=== PATIENT | male | born 1945 | race Caucasian/White ===

== ENCOUNTER 2018-08-27 11:11 | Inpatient (IN) | payer MEDICARE, OTHER ==
[~2018-08-27] VITALS: Ht 162.6 cm; Wt 60.8 kg
[2018-08-27 12:12] LABS: BASOPHILS % (AUTO) 0.5 % (0-1); EOSINOPHILS # (AUTO) 0.1 X10'3 (0-0.9); EOSINOPHILS % (AUTO) 1.8 % (0-6); HEMATOCRIT 38.6 % (42.0-52.0); LYMPHOCYTES # (AUTO) 0.9 X10'3 (1.1-4.8); LYMPHOCYTES % (AUTO) 15.5 % (21-51); MEAN CORPUSCULAR HEMOGLOBIN 33.5 PG (27.0-31.0); MEAN CORPUSCULAR HGB CONC 33.7 g/dL (33.0-36.5); MEAN CORPUSCULAR VOLUME 99.4 FL (78-98); MEAN PLATELET VOLUME 7.8 FL (7.4-10.4); MONOCYTES # (AUTO) 0.6 X10'3 (0-0.9); MONOCYTES % (AUTO) 10.5 % (2-12); NEUTROPHILS # (AUTO) 4.3 X10'3 (1.8-7.7); NEUTROPHILS % (AUTO) 71.7 % (42-75); PLATELET COUNT 223 X10'3 (140-440); RED BLOOD COUNT 3.88 X10'6 (4.70-6.10); RED CELL DISTRIBUTION WIDTH 12.3 % (11.5-14.5)
[2018-08-27 12:24] LABS: ALANINE AMINOTRANSFERASE 19 U/L (12-78); ALBUMIN 3.7 G/DL (3.4-5.0); ALBUMIN/GLOBULIN RATIO 1.1 (1.1-1.5); ALKALINE PHOSPHATASE 58 IU/L (46-116); ANION GAP 4 (8-16); ASPARTATE AMINO TRANSFERASE 16 U/L (10-37); BILIRUBIN,TOTAL 0.7 MG/DL (0.1-1.0); BLOOD UREA NITROGEN 14 MG/DL (7-18); CALCIUM 9.4 MG/DL (8.5-10.1); CHLORIDE 99 MMOL/L (99-107); GLUCOSE 101 MG/DL (70-104); POTASSIUM 4.5 MMOL/L (3.5-5.1); SODIUM 129 MMOL/L (135-145); TOTAL CARBON DIOXIDE 25.9 MMOL/L (24-32); TOTAL PROTEIN 7.1 G/DL (6.4-8.2); eGFR > 90 ML/MIN
[2018-08-27 12:25] LABS: PARTIAL THROMBOPLASTIN TIME 31 SECONDS (22-32); PROTHROMBIN TIME 10.6 SECONDS (9.0-12.0)
[2018-08-27] MEDS ORDERED: aspirin 81mg tab.chew PO ONE (13:50)
[2018-08-27] MEDS ORDERED: mag hydrox/Alum hydrox/simeth 30ml oral suspension PO PRN (14:00)
[2018-08-27] MEDS ORDERED: regadenoson 0.4mg/5ml syringe IV PRN (14:00)
[2018-08-27] MEDS ORDERED: aminophylline 250mg/10ml inj. IV PRN (14:00)
[2018-08-27] MEDS ORDERED: ondansetron/PF 4mg/2ml inj IV PRN (14:00)
[2018-08-27] MEDS ORDERED: metoprolol tartrate 1mg/ml inj IV PRN (14:00)
[2018-08-27] MEDS ORDERED: magnesium hydroxide 30ml (MOM) UD suspension PO PRN (14:00)
[2018-08-27] MEDS ORDERED: acetaminophen 325mg tablet PO PRN (14:00)
[2018-08-27] MEDS ORDERED: nitroGLYCERIN 0.4mg SUBLingual tab SL PRN (14:00)
[2018-08-27] MEDS ORDERED: FISH12002 PO (14:15)
[2018-08-27] MEDS ORDERED: IRBE150T27 PO (14:15)
[2018-08-27] MEDS ORDERED: BLACK CURRANT OIL PO (14:15)
[2018-08-27] MEDS ORDERED: CYAN-19 PO (14:15)
[2018-08-27] MEDS ORDERED: PRAV20TA4 PO (14:15)
[2018-08-27] MEDS ORDERED: [UNRECOGNIZED DRUG - OTHER] PO (14:15)
[2018-08-27] MEDS: normal saline 1000ml 1,000 ML IV SCH ×2 (16:07→21:56)
--- NOTE | 2018-08-27 19:57 | NUR ---
PATIENT WANTS TO WALK TO BATHROOOM, ACCOMPANIED TO BR
[2018-08-27 20:30] VITALS: BP 165/96
--- NOTE | 2018-08-27 20:30 | NUR ---
Patient arrived from the ER via W/C and is ambulating in his room on his own, the aide is doing vitals and I am going to get his heart monitor at this time.
[2018-08-28] VITALS (11 sets, daily range): BP systolic 107–168; BP diastolic 46–79
[2018-08-28 06:07] LABS: BASOPHILS % (AUTO) 0.7 % (0-1); EOSINOPHILS # (AUTO) 0.2 X10'3 (0-0.9); EOSINOPHILS % (AUTO) 3.8 % (0-6); HEMATOCRIT 37.3 % (42.0-52.0); HEMOGLOBIN 12.7 g/dl (14.0-17.9); LYMPHOCYTES % (AUTO) 22.1 % (21-51); MEAN CORPUSCULAR HEMOGLOBIN 33.7 PG (27.0-31.0); MEAN CORPUSCULAR HGB CONC 34.1 g/dL (33.0-36.5); MEAN CORPUSCULAR VOLUME 98.7 FL (78-98); MEAN PLATELET VOLUME 8.1 FL (7.4-10.4); MONOCYTES # (AUTO) 0.5 X10'3 (0-0.9); NEUTROPHILS # (AUTO) 2.9 X10'3 (1.8-7.7); NEUTROPHILS % (AUTO) 62.4 % (42-75); PLATELET COUNT 199 X10'3 (140-440); RED BLOOD COUNT 3.78 X10'6 (4.70-6.10); RED CELL DISTRIBUTION WIDTH 12.4 % (11.5-14.5); WHITE BLOOD COUNT 4.6 X10'3 (4.5-11.0)
--- NOTE | 2018-08-28 06:17 | NUR ---
Problems reprioritized. Patient report given, questions answered & plan of care reviewed with Katherine ZAMORA.
[2018-08-28 06:30] LABS: ALANINE AMINOTRANSFERASE 18 U/L (12-78); ALBUMIN 3.2 G/DL (3.4-5.0); ALKALINE PHOSPHATASE 50 IU/L (46-116); ANION GAP 7 (8-16); ASPARTATE AMINO TRANSFERASE 15 U/L (10-37); BILIRUBIN,TOTAL 0.4 MG/DL (0.1-1.0); BLOOD UREA NITROGEN 13 MG/DL (7-18); BUN/CREATININE RATIO 20.3 (5.4-32.0); CALCIUM 8.6 MG/DL (8.5-10.1); CHLORIDE 102 MMOL/L (99-107); CREATININE 0.64 MG/DL (0.60-1.10); GLUCOSE 74 MG/DL (70-104); POTASSIUM 3.9 MMOL/L (3.5-5.1); SODIUM 134 MMOL/L (135-145); TOTAL CARBON DIOXIDE 25.3 MMOL/L (24-32); TOTAL PROTEIN 6.3 G/DL (6.4-8.2); eGFR > 90 ML/MIN
[2018-08-28] MEDS ORDERED: regadenoson 0.4mg/5ml syringe IV ONE (09:21)
[2018-08-28] MEDS ORDERED: aminophylline inj. 10 ML IV ONE (09:21)
[2018-08-28] MEDS ORDERED: atorvastatin 10mg tablet PO SCH (21:00)
== END 2018-08-28 12:27 | disposition home or self-care (01) | DRG 313 ==
LOC: ER 11:11 → ORTHO 4S 20:15 → CMPBEDREQ 20:52
PROVIDERS: ADMIT Family Medicine; ATTEND Family Medicine
PROC: 4A02XM4 Measurement of Cardiac Total Activity, External Approach (ICD-10-PCS; principal; 2018-08-28)
PROC: 3E033HZ Introduction of Radioactive Substance into Peripheral Vein, Percutaneous Approach (ICD-10-PCS; 2018-08-28)
DX: R07.89 Other chest pain (principal); E87.1 Hypo-osmolality and hyponatremia; I10 Essential (primary) hypertension; E78.5 Hyperlipidemia, unspecified; E86.0 Dehydration; I34.0 Nonrheumatic mitral (valve) insufficiency; Z79.899 Other long term (current) drug therapy; Z87.891 Personal history of nicotine dependence; Z82.49 Family history of ischemic heart disease and other diseases of the circulatory system
CPT/HCPCS: 36415; 71045; 78452; 80053; 84484; 85025; 85610; 85730; 87070; 93005; 93017; 93306; A9500; G0378; J0280; J7030

== ENCOUNTER 2020-09-27 10:43 | Outpatient (CLI) | payer MEDICARE, OTHER ==
[~2020-09-27 10:43] MED LIST: ALBU8.5H8 INH; AMIO200T67 PO; ASPI-1071 PO; FLO0.4C PO; FLUT1DIS15 INH; FURO-150 PO; IRBE150T24 PO; IRON150C13 PO; LOP12.5T PO; MULT-1219 PO; POTA10TA36 PO; PRAV80TA3 PO
== END 2020-09-27 23:59 | disposition home or self-care (01) ==
LOC: RAD 10:43
PROVIDERS: ATTEND Thoracic Surgery (Cardiothoracic Vascular Surgery)
DX: J90 Pleural effusion, not elsewhere classified (principal); I51.7 Cardiomegaly; I25.10 Atherosclerotic heart disease of native coronary artery without angina pectoris
CPT/HCPCS: 71046

== ENCOUNTER 2020-10-02 08:42 | Day surgery (SDC) | payer MEDICARE, OTHER ==
[~2020-10-02] VITALS: Ht 157.5 cm; Wt 74.2 kg
[2020-10-02] MEDS ORDERED: albumin 25% 100mL bottle x 1 IV PRN (09:10)
[2020-10-02 10:00] VITALS: BP 132/77
[2020-10-02 10:15] VITALS: BP 118/72
[2020-10-02 10:30] VITALS: BP 120/63
[2020-10-02 10:58] VITALS: BP 132/76
[2020-10-02] MEDS ORDERED: FLO0.4C PO (11:01)
[2020-10-02] MEDS ORDERED: FURO-150 PO (11:01)
[2020-10-02] MEDS ORDERED: ALBU8.5H8 INH (11:01)
[2020-10-02] MEDS ORDERED: METO25TA6 PO (11:01)
[2020-10-02] MEDS ORDERED: POTA10TA36 PO (11:01)
[2020-10-02] MEDS ORDERED: ASPI-107 PO (11:01)
[2020-10-02] MEDS ORDERED: AMIO200T62 PO (11:01)
[2020-10-02 11:15] VITALS: BP 118/72
[2020-10-02 12:19] VITALS: BP 142/72
== END 2020-10-02 11:15 | disposition home or self-care (01) ==
LOC: SSTAY O 08:42
PROVIDERS: ATTEND Radiology Vascular & Interventional Radiology
DX: J90 Pleural effusion, not elsewhere classified (principal); I25.10 Atherosclerotic heart disease of native coronary artery without angina pectoris; I34.0 Nonrheumatic mitral (valve) insufficiency; I10 Essential (primary) hypertension; E78.5 Hyperlipidemia, unspecified; Z95.1 Presence of aortocoronary bypass graft; Z95.2 Presence of prosthetic heart valve; Z87.01 Personal history of pneumonia (recurrent); Z87.891 Personal history of nicotine dependence; Z79.899 Other long term (current) drug therapy; Z82.49 Family history of ischemic heart disease and other diseases of the circulatory system
CPT/HCPCS: 32555

== ENCOUNTER 2025-02-25 09:57 | Outpatient (CLI) | payer MEDICARE, OTHER ==
[~2025-02-25 09:57] MED LIST changes: +ALBU8.5H17 INH; -ALBU8.5H8 INH; -AMIO200T67 PO; +AMIO200T72 PO; +ASPI-107 PO; -ASPI-1071 PO; -FLO0.4C PO; -FLUT1DIS15 INH; -IRBE150T24 PO; +IRBE150T34 PO; -IRON150C13 PO; -LOP12.5T PO; +METO25TA6 PO; +POTA-206 PO; -POTA10TA36 PO; -PRAV80TA3 PO; +PRAV80TA75 PO; +TAMS-55 PO
--- NOTE | 2025-02-25 11:35 | VASCULAR REPORT ---
[facility] Vascular Department [facility] [address] [place] [address] [email or web address] VASCULAR Name : ANN PALOMARES Date : 02/25/2025 TESTING [facility] Birthdate : 1945 Sex : M Chassis Engineer : Mo Martin RVT Age : [address] : ZO PHAN Preliminary Report The above named patient was referred for a NON-INVASIVE CEREBROVASCULAR EVALUATION. The evaluation includes grayscale imaging, color flow Doppler and spectral analysis of the bilateral carotid and vertebral arteries. Patient OUT-PATIENT LttihnBilateral Indications Hypertension Doppler Spectral Velocity Analysis Right Left pCCA 113/15 cm/s pCCA 190/12 cm/s dCCA 44/12 cm/s dCCA 62/12 cm/s ECA 81/ cm/s ECA 87/ cm/s pICA 49/13 cm/s pICA 48/10 cm/s Lizbeth 87/24 cm/s Lizbeth 56/16 cm/s dICA 79/21 cm/s dICA 69/20 cm/s Vert. 52/15 cm/s Vert. 34/10 cm/s Subcl. 112/ cm/s Subcl. 100/ cm/s ICA/CCA 1.98 ICA/CCA 1.11 Real-Time B-Mode Imaging Area Findings Right Left CCA Plaque Composition Intimal thickening Intimal thickening BIF Plaque Composition Heterogeneous with calcification Heterogeneous with calcification Plaque Description Irregular Irregular Plaque Area Focal Focal Vertebral Antegrade Antegrade Subclavian Multiphasic Multiphasic Impression: No sonographic evidence of stenosis or occlusion in bilateral carotid arteries. All carotid arteries showed less than 50% stenosis. Antegrade flow noted in bilateral vertebral arteries. Multiphasic flow noted in bilateral subclavian arteries.
== END 2025-02-25 23:59 | disposition home or self-care (01) ==
LOC: RAD 09:57
PROVIDERS: ATTEND Internal Medicine Cardiovascular Disease
DX: R09.89 Other specified symptoms and signs involving the circulatory and respiratory systems (principal)
CPT/HCPCS: 93880